=== PATIENT | female | born 1960 | race Hispanic/Latino ===

== ENCOUNTER 2016-10-29 19:52 | Emergency (ER) | payer OTHER ==
[~2016-10-29] VITALS: Ht 152.4 cm; Wt 75.0 kg
[~2016-10-29 19:52] MED LIST: CEPH-512 PO; GLPZ5T PO; METF850T2 PO
[2016-10-29 20:27] VITALS: BP 164/96; PULSE 88; RESP 17; O2SAT 97
[2016-10-29] MEDS ORDERED: OMEP20CA11 PO (20:43)
[2016-10-29] MEDS ORDERED: SIMV20TA4 PO (20:43)
--- NOTE | 2016-10-29 22:50 | ED.REPORT ---
HPI-Extremity Problem Upper Date of Service Oct 29, 2016 ED Provider: Jordan Botello MD Pt is a 56 year old female with a hx of DM on Metformin and glipizide presenting to the ED complaining of a headache intermittent throughout the past year worsened at 1900. She also reports neck, left arm, and left shoulder pain, and pain radiating from the back of her head down her back. The pt fell about a year ago, and she has been going to physical therapy since but the pain is still present. She reports that the headaches are very frequent, but tonight the headache is stronger than usual. She denies fever or vomiting. The pt was seen in UC today and was given pain medication but she is not sure which kind. The pt has an appointment with her pain management provider in 3 weeks. Nursing Notes Stated Complaint: NECK/ RT ARM PAIN Chief Complaint: General Complaint Nursing Notes Reviewed: Yes Allergies: Coded Allergies: No Known Allergies (Verified Allergy, Unknown, 10/29/16) Scheduled Glipizide (Glipizide) 5 Mg Tablet 5 MG PO DAILY Metformin (Metformin) 850 Mg Tablet 850 MG PO BID Omeprazole (Omeprazole) 20 Mg Capsule.dr 20 MG PO DAILY Simvastatin (Simvastatin) 20 Mg Tablet 20 MG PO HS General Time Seen by MD: 22:49 Chief Complaint Other (Headache) Hx Obtained From: Patient Arrived By: Walk-in Onset Occurred: More than a week ago... (>6 months) Symptom Duration: Intermittent Caused by: Accidental Location: : Arm left: Shoulder left Quality: Painful Severity: Current: Severe Severity: Maximum: Severe Associated with: Reports: Back pain, Denies: Fever Recent Healthcare: No recent hospitalization, Recent doctor visit Similar Sx Previous: Yes Past Medical History Past Medical History small bowel obstruction, Chronic daily vomiting Acid reflux chronic headaches, neck pain and left arm pain Reports: Diabetes mellitus Past Surgical History still continues with pain after GB removal in 1998 shoulder surgery Reports: Appendectomy, Cholecystectomy Smoking History Never Smoker Social History Alcohol Use: Denies alcohol use Drug Use: Denies drug use Other Social History: Occupation lives with Ambulatory Status Independent Review of Systems Constitutional: Denies: Fever Musculoskeletal: Reports: Back pain, Extremity pain (Left arm), Joint pain ( Left shoulder), Neck pain Neurologic: Reports: Headache Complete sys rev & neg: except as marked. GI: Denies: Vomiting Physical Exam Initial Vital Signs Vital Signs (First) Date Time Temp Pulse Resp B/P Pulse Ox O2 Delivery O2 Flow Rate FiO2 10/29/16 20:27 36.1 88 17 164/96 97 Room Air Initial VS: Reviewed General/Constitutional: Well-developed, Well-nourished Head / Eyes: Atraumatic, Normocephalic, PERRL ENT: Mucous membranes moist, Conjunctiva normal, No scleral icterus Neck: Supple Respiratory: No respiratory distress Abdomen / GI: No distention Skin: Warm, Dry, No cyanosis Psychiatric: Mood/affect normal, Behavior normal, Normal thought content General/Constitutional: Awake, Alert Neurologic: Oriented X3, Speech NL, No motor deficits, No sensory deficits, CN II - XII intact, Cerebellar NL, Memory NL Re-Eval/Medical Decision Med Decision/Clinical Course Headache neck and left arm pain. This is an ongoing and recurrent problem for the patient. Saw her occupational medicine doctor today, prescription for something which is unknown. Note previous ED visits for this and other pain related problems. No red flag conditions noted regarding the headache and she is neurologically intact. We will get given a dose of Toradol and Flexeril and advised to follow-up with her occupational medicine doctor. Will not add any new prescription medications for home as the patient is not able to enlighten me as to what was prescribed today. The pt's is driving. Re-Evaluation/Progress : Time of Eval: 23:24 Patient Status: Condition improved Re-Evaluation/Progress Note: Discussed plan for discharge. Pt understands and agrees with plan. All pt questions addressed. Counseled Regarding: Diagnosis, Lab results, Need for follow-up, When/why to return to ED Discharge & Departure Impression: Primary Impression: Tension-type headache Headache chronicity pattern: acute headache Intractability: not intractable Qualified Code: G44.209 - Tension-type headache, unspecified, not intractable Disposition: Home Discharge Condition All VS Reviewed: Yes Condition: Improved Additional Instructions: Start the medication prescribed by your occupational medicine doctor tomorrow. Follow up with occupational medicine and Dr Fontana if symptoms persist. GOOGLE TRANSLATE Comience el medicamento recetado por wolf mdico de medicina del trabajo chelsi. Seguir con la medicina ocupacional y el Dr. Fontana si los sntomas persisten. Referrals: Mari Fontana MD (PCP) Kelsie Tovar Scribe Attestation Portions of this note were transcribed by Marilyn Hoyos. I, Dr. Botello personally performed the history, physical exam and medical decision-making; I reviewed and confirmed the accuracy of the information in the transcribed note. Signed by : Drew Contreras, 10/30/16 and 0000. copies to: Kelsie Tovar; Mari Fontana MD, Donald L MD Oct 29, 2016 22:50 MARILYN HOYOS Oct 29, 2016 22:54
[2016-10-29] MEDS ORDERED: HYDROcodone-APAP 5-325 mg Tablet PO ONE (23:30)
[2016-10-29 23:59] VITALS: BP 140/80; PULSE 80; RESP 16; O2SAT 97
== END 2016-10-30 | disposition home or self-care (01) ==
LOC: SED 19:52
DX: G44.209 Tension-type headache, unspecified, not intractable (principal); M79.602 Pain in left arm; M25.512 Pain in left shoulder; E11.9 Type 2 diabetes mellitus without complications; K21.9 Gastro-esophageal reflux disease without esophagitis; Z91.81 History of falling; Z79.84 Long term (current) use of oral hypoglycemic drugs
CPT/HCPCS: 96372; 99283; J1885

== ENCOUNTER 2016-12-20 10:33 | Emergency (ER) | payer OTHER ==
[~2016-12-20] VITALS: Ht 152.4 cm; Wt 63.6 kg
[~2016-12-20 10:33] MED LIST changes: -CEPH-512 PO; +OMEP20CA11 PO; +SIMV20TA4 PO
[2016-12-20 10:37] VITALS: BP 113/90; PULSE 115; RESP 18; O2SAT 100
[2016-12-20] MEDS ORDERED: 0.9% Sodium Chloride 1,000 ML IV ONE ×2 (11:28→13:05)
--- NOTE | 2016-12-20 11:32 | ED.REPORT ---
HPI-General Illness Date of Service Dec 20, 2016 ED Provider: Clement Auguste PA-C Ashley is a 56-year-old female with history of back pain, diabetes, hyperlipidemia who presents with a chief complaint of fever. She reports approximately 3 days ago she began feeling very cold. She does not have a monitor at home and did not measure a fever. She also complains that her whole body hurts especially her lower back, hips, lower abdomen and legs. She reports that she has pain in her eyes that aggravated by moving her head quickly. She reports one episode of vomiting that was nonbloody. She has tried Tylenol and found it to be little help. Denies rhinorrhea, congestion, sore throat, cough, wheezing, shortness of breath, diarrhea, urinary symptoms, vaginal bleeding/discharge Nursing Notes Stated Complaint: FEVER/BODY ACHES Chief Complaint: General Complaint Nursing Notes Reviewed: Yes Allergies: Coded Allergies: No Known Allergies (Verified Allergy, Unknown, 10/29/16) Scheduled Cephalexin (Keflex) 500 Mg Capsule 500 MG PO QID Glipizide (Glipizide) 5 Mg Tablet 5 MG PO DAILY Metformin (Metformin) 850 Mg Tablet 850 MG PO BID Omeprazole (Omeprazole) 20 Mg Capsule.dr 20 MG PO DAILY Ondansetron ODT (Ondansetron ODT) 4 Mg Tab.rapdis 4-8 MG PO QID Simvastatin (Simvastatin) 20 Mg Tablet 20 MG PO HS General Time Seen by MD: 11:04 Chief Complaint Fever Past Medical History Past Medical History history of small bowel obstruction EMR indicates history of some mild chronic daily vomiting Acid reflux chronic headaches chronic neck pain and left arm pain ho H. Pylori (treated) Reports: Diabetes mellitus (Type 2) Past Surgical History still continues with pain after GB removal in 1998 shoulder surgery Reports: Appendectomy, Cholecystectomy Smoking History Never Smoker Social History Alcohol Use: Denies alcohol use Drug Use: Denies drug use Other Social History: Occupation lives with Ambulatory Status Independent Review of Systems Negative unless stated otherwise in history of present illness Physical Exam General: Anxious appearing, well developed, well nourished, moderate distress. Head: Atraumatic, normocephalic. Eyes: No scleral icterus or injection. No discharge. Vision grossly intact. ENT: Voice clear, hearing grossly intact. Respiratory: Regular rate and rhythm. Breath sounds present, clear to auscultation and equal bilaterally. No respiratory distress. No increased work of breathing, speaks in complete sentences. Cardiovascular: Tachycardic with regular rhythm, without murmur, gallop or rub. No pedal edema. Gastrointestinal: Abdomen diffusely tender, especially over the lower quadrants guarding or rebound. Bowel sounds normoactive. Skin: Warm and dry. Back: Normal to inspection mildly tender over left flank. Neurological: Normal gait and otherwise grossly nonfocal. Psychological: Alert and oriented. Speech appropriate, linear and logical. Behavior appropriate. Vital Signs Vital Signs Date Time Temp Pulse Resp B/P Pulse Ox O2 Delivery O2 Flow Rate FiO2 12/20/16 15:02 36.6 94 16 111/84 100 Room Air 12/20/16 10:37 37.3 115 18 113/90 100 Room Air Initial VS: Reviewed, Vital signs abnormal (tachycardic) Interpretation & Diagnostics Interpretation & Diagnostics: Hyperglycemia at 343 Sodium and chloride slightly low CBC normal Urinalysis reveals 5-10 white blood cells, small leukocyte esterase, slight ketonuria Lab Results Interpretation Result Diagram: 12/20/16 1205 12/20/16 1205 Test 12/20/16 12:05 White Blood Count 3.8th/mm3 (3.8-10.1) Red Blood Count 4.98mil/mm3 (3.90-5.20) Hemoglobin 14.7g/dL (12.0-15.6) Hematocrit 40.8% (35.0-46.0) Mean Corpuscular Volume 81.9fL (81-100) Mean Corpuscular Hemoglobin 29.5pg (27.0-35.0) Mean Corpuscular Hemoglobin Concent 36.0% (32.0-37.0) Red Cell Distribution Width 11.9% (12.3-15.4) Platelet Count 168bil/L (150-400) Neutrophils (%) (Auto) 73.1% (40-74) Lymphocytes (%) (Auto) 22.2% (14-46) Monocytes (%) (Auto) 4.7% (4-12) Eosinophils (%) (Auto) 0% (0-5) Basophils (%) (Auto) 0% (0-3) Urine Color Yellow (YELLOW) Urine Appearance Hazy (CLEAR,HAZY) Urine pH 6.0 (5.0-8.0) Urine Specific [place] 1.010 (1.003-1.035) Urine Protein Negativemg/dL (NEG,TRACE) Urine Glucose (UA) 1000mg/dL (NEGATIVE) Urine Ketones 15mg/dL (NEGATIVE) Urine Occult Blood Negative (NEGATIVE) Urine Nitrite Negative (NEGATIVE) Urine Bilirubin Negative (NEGATIVE) Urine Urobilinogen Normalmg/dL (NORMAL) Urine Leukocyte Esterase Small (NEGATIVE) Urine RBC 0-2/hpf (0-2) Urine WBC 11-50/hpf (0-5) Urine Epithelial Cells Occasional/hpf (NONE-MOD) Urine Crystals None seen (NONE SEEN) Urine Bacteria None/hpf (NONE-FEW) Urine Hyaline Casts None/lpf (NONE) Urine Granular Casts None seen (NONE SEEN) Urine Waxy Casts None seen (NONE SEEN) Urine Red Blood Cell Casts None seen (NONE SEEN) Urine White Blood Cell Casts None seen (NONE SEEN) Urine Mucus None seen (None Seen) Urine Trichomonas None seen (NONE SEEN) Urine Yeast None (NONE SEEN) Urinalysis Comment None Urine Culture Reflexed Indicated Sodium Level 132mEq/L (134-144) Potassium Level 4.1mEq/L (3.5-5.2) Chloride Level 96mEq/L (97-108) Carbon Dioxide Level 24mmol/L (18-29) Blood Urea Nitrogen 9mg/dL (6-24) Creatinine 0.60mg/dL (0.57-1.00) Estimat Glomerular Filtration Rate 148mL/min (>59) Glucose Level 343mg/dL (60-99) Calcium Level 8.5mg/dL (8.5-10.1) Total Bilirubin 0.4mg/dL (0.0-1.2) Aspartate Amino Transf (AST/SGOT) 45U/L (0-50) Alanine Aminotransferase (ALT/SGPT) 32U/L (0-32) Alkaline Phosphatase 89U/L (25-150) Total Protein 6.8g/dL (6.4-8.4) Albumin 3.7g/dL (3.4-5.0) Hold Tian Top Tube Received (Received) Lab Results Interpretation: Dr. Gonzalez: CBC normal CMP moderate hyperglycemia, no evidence of renal dysfunction or metabolic acidosis UA with positive white cells, S leuks-culture pending Re-Eval/Medical Decision Source of Hx: Old records Time of Eval: 13:05 Re-Evaluation/Progress Note: Patient reports feeling a little better after 1 L of normal saline, ketorolac, acetaminophen. Tachycardia resolved at roughly 96 bpm Differential Diagnosis: Positive: Diabetes mellitus, Influenza, Urinary tract infection (Right mild pyelonephritis), Negative: Abrasion, Acute coronary syndrome, Drug dependence, G-tube repair/ replacement, Laceration, Malingering, Neutropenia, Pneumonia Counseled Regarding: Lab results, Need for follow-up, When/why to return to ED Discharge & Departure Primary Impression: UTI (urinary tract infection) Urinary tract infection type: acute pyelonephritis Qualified Code: N10 - Acute tubulo-interstitial nephritis Additional Impression: Hyperglycemia Disposition: Home Discharge Condition All VS Reviewed: Yes Condition: Stable Patient Instructions: Acute Pyelonephritis (ED) Additional Instructions: Evaluation for fever in the emergency department. Urinalysis suggests that you have a urinary tract infection. Because you have some pain in your right lower back, we will treat this as though the infection has progressed to a kidney as well. He has been given a dose of IV antibiotics in the emergency department. I will give you a prescription for antibiotics to be taken 4 times a day for the next week. The pain is best treated with 400 mg of ibuprofen (Advil, Motrin) every 6 hours , or 1000 mg of acetaminophen (Tylenol) every 6 hours. These drugs can be taken at the same time for more severe pain. Follow-up with your primary care provider in the next week to be sure you are progressing as expected. We also noted that you are blood sugar was quite high today. Please discuss your diabetes management with your primary care provider. Return to the emergency department for any new or worsening symptoms including increasing pain, fever, vomiting. Google translate Se le hizo roxana evaluacin por la fiebre que usted tenia cuando llego a la haley de emergencias . Los anlisis de orina indican que usted tiene roxana infeccin del tracto urinario. Dado que tiene n dolor en la parte inferior de la espalda , la trataremos haily si la infeccin tambin hubiera pasado al rin. Se le harden dado roxana dosis de antibiticos por via intravenosa. Le anthony roxana receta para que se siga tomando elena antibiticos 4 veces al da howard la prxima semana. Para el dolor puede tomarse 400 mg de ibuprofeno (Advil, Motrin) cada 6 horas, o 1000 mg de acetaminofn (Tylenol) cada 6 horas. Estos medicamentos se pueden cynthia al mismo tiempo para un dolor ms richelle. Monica roxana citacon wolf medico de cabecera o de emily la prxima semana para asegurarse de que leah mejorando haily se esperaba. Tambin observamos que el az car en la andrea la tenia bastante dalton. Por favor, platique sobre wolf diabetes con wolf medico de cabecera o de emily. Vuelva a la haley de emergencias por cualquier nuevo sintoma o si empeoran los s ntomas incluyendo: aumento del dolor, fiebre, vmitos. Referrals: Mari Fontana MD (PCP) EDSupervising Provider for APC: Nasim Gonzalez MD Attending Statement This patient was initially seen by the mid-level provider. Personally interviewed and examined the patient. Plans to use, diffuse body aches, has some mild right flank discomfort and nausea and vomiting 1. She has had subjective fever, but is not currently febrile in the department. She does have a mild tachycardia on initial presentation appeared clinically fatigued. She had mild CVA tenderness on my exam, the anterior abdomen soft nontender including the right upper quadrant. She denies overt dysuria. She had blood work which is notable for hyperglycemia, and a UA that is abnormal. In the setting of symptoms that are highly suspicious for mild pyelonephritis with subjective fever, right flank pain, CVA tenderness, nausea- I recommended treatment. She received hydration and feels much improved in the nausea resolved. She received an IV dose of ceftriaxone. She is being discharged on continued antibiotics, and some when necessary ondansetron. Lites continue Tylenol. We have recommended follow-up with her PCP for further management of her hyperglycemia. I also obtained records from [facility] clinic and medication list : Omeprazole 20 mg daily Metformin 850 mg 2 times a day Simvastatin 20 mg daily Tylenol 1000 g every 6 hours when necessary Cyclobenzaprine 10 mg when necessary Patient is improved on reevaluation. Tachycardia is resolved. Patient and are comfortable with discharge to home and plan. Routine precautions reviewed. Discharge instructions reviewed. copies to: Mari Fontana MD, Seth PA-C Dec 20, 2016 11:32 Nasim Gonzalez MD Dec 20, 2016 14:57 Clement Auguste PA-C Dec 20, 2016 11:32 Nasim Gonzalez MD Dec 20, 2016 14:57
[2016-12-20 12:10] LABS: BASOPHILS % (AUTO) 0 % (0-3); EOSINOPHILS % (AUTO) 0 % (0-5); MONOCYTES % (AUTO) 4.7 % (4-12); Mean Corpuscular Hemoglobin 29.5 pg (27.0-35.0); Mean Corpuscular Volume 81.9 fL (81-100); NEUTROPHILS % (AUTO) 73.1 % (40-74); Platelet Count 168 bil/L (150-400)
[2016-12-20 12:25] LABS: APPEARANCE,URINE HAZY (CLEAR,HAZY); COLOR,URINE YELLOW (YELLOW); OCCULT BLOOD,URINE NEGATIVE (NEGATIVE); UROBILINOGEN,URINE NORMAL (NORMAL)
[2016-12-20] MEDS ORDERED: cefTRIAXone Inj 2,000 MG in Dextrose 5% Minibag Plus 50 ML IV ONE (13:05)
[2016-12-20] MEDS ORDERED: ONDA4TAB12 PO (14:50)
[2016-12-20] MEDS ORDERED: CEPH-512 PO (14:50)
[2016-12-20 15:02] VITALS: BP 111/84; PULSE 94; RESP 16; O2SAT 100
== END 2016-12-20 15:03 | disposition home or self-care (01) ==
LOC: SED 10:33
DX: N10 Acute pyelonephritis (principal); E11.65 Type 2 diabetes mellitus with hyperglycemia; H57.10 Ocular pain, unspecified eye; R11.10 Vomiting, unspecified; K21.9 Gastro-esophageal reflux disease without esophagitis; E78.5 Hyperlipidemia, unspecified; Z79.84 Long term (current) use of oral hypoglycemic drugs
CPT/HCPCS: 36415; 80053; 81000; 85025; 87077; 87086; 87088; 87186; 96361; 96365; 96375; 99285; J0696; J7030

== ENCOUNTER 2017-06-02 13:36 | Emergency (ER) | payer OTHER ==
[~2017-06-02] VITALS: Ht 152.4 cm; Wt 65.0 kg
[~2017-06-02 13:36] MED LIST changes: +CEPH-512 PO; +ONDA4TAB12 PO
[2017-06-02 13:40] VITALS: BP 133/84; PULSE 66; RESP 16; O2SAT 100
--- NOTE | 2017-06-02 15:16 | ED.REPORT ---
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 have not worked for 2 years. had operation on left shoulder for pain last year. last visit was 04/03/2016 for shoulder. patient reports surgery was not helpful. Still continues with pain, but this is on her left side. living in the car. has no money for rent. [facility] care is [facility]. last there 2 months ago for diabetes. [facility] and I wanted her to return to work on 05/26/2017. Went to [email or web address]. The peron in charge was not there. Date was 04/29 she was to return. Does not feel she can return. [employer] paid her only a small amount. Spent the winter in the car. Has family living in [place] patient is not reporting new symptoms or new injury. Nursing Notes Chief Complaint: Multiple Trauma/Fall Allergies: Coded Allergies: No Known Allergies (Verified Allergy, Unknown, 10/29/16) Scheduled Cephalexin (Keflex) 500 Mg Capsule 500 MG PO QID Glipizide (Glipizide) 5 Mg Tablet 5 MG PO DAILY Metformin (Metformin) 850 Mg Tablet 850 MG PO BID Omeprazole (Omeprazole) 20 Mg Capsule.dr 20 MG PO DAILY Ondansetron ODT (Ondansetron ODT) 4 Mg Tab.rapdis 4-8 MG PO QID Simvastatin (Simvastatin) 20 Mg Tablet 20 MG PO HS General Time Seen by MD: 15:15 Chief Complaint Other (body pain) Hx Obtained From: Patient (with the use of interper) Sudden in Onset?: No Onset Occurred: More than a week ago... (>6 months) Context: Occurred at: Workplace Past Medical History Past Medical History history of small bowel obstruction EMR indicates history of some mild chronic daily vomiting Acid reflux chronic headaches chronic neck pain and left arm pain ho H. Pylori (treated) Reports: Diabetes mellitus Past Surgical History still continues with pain after GB removal in 1998 shoulder surgery Reports: Appendectomy, Cholecystectomy Smoking History Never Smoker Social History Alcohol Use: Denies alcohol use Drug Use: Denies drug use Other Social History: Occupation lives with Ambulatory Status Independent Review of Systems Full Review of Systems Constitutional: Reports: Fatigue, Denies: Chills Ears / Nose / Throat: Denies: Ear drainage left, Ear drainage right Musculoskeletal: Reports: Extremity pain Physical Exam Vital Signs Vital Signs Date Time Temp Pulse Resp B/P Pulse Ox O2 Delivery O2 Flow Rate FiO2 06/02/17 16:13 68 15 142/88 100 Room Air 06/02/17 13:40 36.6 66 16 133/84 100 Room Air Initial VS: Reviewed, Vital signs normal General/Constitutional: Well-developed, Well-nourished Head / Eyes: Atraumatic, Normocephalic, PERRL ENT: Mucous membranes moist, Conjunctiva normal, No scleral icterus Neck: Supple, Non-tender, Full range of motion Respiratory: Breath sounds normal, Clear to auscultation, No respiratory distress Cardiovascular: Regular rate & rhythm, Heart sounds normal, Intact distal pulses Abdomen / GI: Soft, Non-tender, No guarding, No rebound, No distention Back: No CVA tenderness Lymphatic: No lymphadenopathy Extremities: Vascular intact, Neuro intact, No swelling, No tenderness Skin: Warm, Dry, No cyanosis Neurologic: Alert, Oriented, Nonfocal Psychiatric: Mood/affect normal, Behavior normal, Normal thought content General/Constitutional: Awake, Alert, No acute distress, Well appearing, Well developed, Well hydrated, Well nourished, Cooperative, Not toxic appearing Head / Eyes: Atraumatic, Normocephalic, PERRL ENT: Atraumatic, Airway patent, Mucous membranes moist, Pharynx NL Respiratory / Chest: Atraumatic, Breath sounds NL, Breath sounds = bilat, No respiratory distress Cardiovascular: Heart rate NL, Regular rhythm, Heart sounds NL, No gallop Re-Eval/Medical Decision Med Decision/Clinical Course 57 year old female here for entire right side body pain. Patient was to return to work. States she received a letter from [employer] and was to report to work at [employer]. There is confusion as to the date of her return. She states it was 05/26 and the letter states 04/29/2017. Regardless, she does not feel she can return to work. She states she had surgery on her left arm which was not successful. She still continues with pain in the left arm and shoulder. No sign of any stroke or septic process. Discharge & Departure Primary Impression: Pain aggravated by physical activity Disposition: Home Patient Instructions: Chronic Pain (ED) Additional Instructions: I am so sorry you fell 2 years ago. I am sorry you are having to stay in your car. I am sorry your is only able to work a small amount. You may need to look at living with family in [place]. Please use ibuprofen 600 mg 3 times a day as needed for discomfort. Please talk to the [employer] office and see what is happening. Continue to follow with primary care at [facility]. Referrals: Wili Cosme MD (PCP) EDSupervising Provider for APC: Sigifredo Peace MD Attending Statement I saw and evaluated the patient in conjunction with the SERVER SYSTEMS ADMINISTRATOR. I agree with the plan and findings as documented above. In brief, 57-year-old female presenting to the ED for evaluation of diffuse right-sided body pain from the top of her head down to the bottom of her feet that has been present over the past 2 years. No acute changes, notable alleviating or exacerbating factors at this time. Afebrile, nontoxic appearing. Reassuring examination. Nonlabored respirations, no respiratory distress. Regular rate and rhythm. Given no acute changes in symptoms today, no red flags symptoms including bowel or bladder incontinence, urinary retention , reasonable to discharge home with outpatient follow-up, careful return precautions. copies to: Wili Cosme MD, Sue [facility] Jun 02, 2017 15:16 Sigifredo Peace MD Jun 02, 2017 16:13
[2017-06-02 16:13] VITALS: BP 142/88; PULSE 68; RESP 15; O2SAT 100
== END 2017-06-02 16:15 | disposition home or self-care (01) ==
LOC: SED 13:36
DX: R52 Pain, unspecified (principal); E11.9 Type 2 diabetes mellitus without complications; Z59.0 Homelessness; Z79.84 Long term (current) use of oral hypoglycemic drugs